=== PATIENT | female | born 1965 | race Caucasian/White ===

== ENCOUNTER 2018-05-30 01:10 | Outpatient (CLI) | payer OTHER, SELFPAY ==
[2018-05-30 11:41] LABS: ALT 26 U/L (12-78); AST 17 U/L (15-37); Albumin 3.9 g/dL (3.4-5.0); Alkaline Phosphatase 94 U/L (46-116); Anion Gap 7.6 mmol/L (3-11); BUN 15 mg/dL (7-18); Bilirubin, Total 0.6 mg/dL (0.2-1.0); CO2 30.4 mmol/L (21.0-32.0); CREATININE 0.66 mg/dL (0.55-1.02); Chloride 104 mmol/L (98-107); Glucose 95 mg/dL (70-100); Potassium 4.5 mmol/L (3.5-5.1); Sodium 142 mmol/L (136-145); Total Protein 7.2 g/dL (6.4-8.2)
== END 2018-05-30 01:30 ==
DX: Z00.00 Encounter for general adult medical examination without abnormal findings (principal); Z13.228 Encounter for screening for other metabolic disorders
CPT/HCPCS: 36415; 80053

== ENCOUNTER 2018-06-23 00:38 | Outpatient (CLI) | payer OTHER, SELFPAY ==
--- NOTE | 2018-06-23 07:30 | DI.MAMMO_ITS ---
SYMPTOMS/DIAGNOSIS: SCREENING, Z12.31 BILATERAL SCREENING MAMMOGRAM: Mammograms were interpreted according to the usual protocol including computer analysis with CAD system, tomosynthesis and C view imaging. Comparison is made with exams from [facility] dated 2008 -2017. The breasts are composed of heterogeneously dense fibroglandular tissue , breast density category C. There has been continued decrease of previously noted bilateral nodules, previously identified as cysts. No suspicious masses or suspicious microcalcifications are seen. IMPRESSION: Category 2, negative mammogram with benign findings. Yearly screening mammography is recommended. SA ASSESSMENT OF FINDINGS: Negative with benign findings. Category 2. Patient will receive a letter notifying them of these results. Bi-RADS category C. The breasts are heterogeneously dense, which may obscure small masses.
== END 2018-06-23 00:58 ==
CPT/HCPCS: 77063; 77067

== ENCOUNTER 2018-09-29 06:27 | Day surgery (SDC) | payer OTHER, SELFPAY ==
--- NOTE | 2018-09-29 06:24 | HPE_ITS ---
Date of service: 09/29/18 Time of Service: 07:30 Assessment and Plan (1) Encounter for screening colonoscopy: Current visit: No Status: Acute P\\ Colonoscopy under MAC sedation The patient is here for Colonoscopy pre-op. Her last screening was in 1999 and was unremarkable. She has no family history of colon cancer. She has not had any bowel habit changes. -Discussed colonoscopy bowel prep as well as the procedure. Discussed possible complications of the procedure to include bleeding, pain, perforation, missed small lesion/polyp, sore throat, aspiration and adverse reaction to the medications. Questions were answered to patient?s satisfaction. No guarantees were implied or given. History of Present Illness Narrative: 52 y/o female presents for colonoscopy screening pre-op. Her last screening was in 1999, which was unremarkable. She denies a family history of colon cancer. She denies any changes in bowel habits including bloody or black tarry stools, abdominal pain, diarrhea or constipation. He denies constitutional symptoms. Denies use of marijuana or any other recreational or illegal drugs. She denies chest pain, palpitations, dyspnea or dyspnea with exertion. She exercises 3-4x/week with walking on the treadmill and yoga. She denies prior history or family history of adverse reactions or complications with anesthesia. There have been no changes in her health since she was last seen in the office. [facility] Medical History History of IBS (Resolved) Family History Mother Hyperlipidemia Father Essential hypertension Sister Hyperlipidemia Asthma Brother No problems noted. Brother No problems noted. 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 pets and animals: Yes pets and animals: dog(s) frequency: 5-6 times per week duration: 15-30 minutes/day Smoking/Tobacco Use Status: Never alcohol intake: current alcohol intake frequency: a few times a month Alcohol type: beer, wine and hard liquor substance use type: does not use jono/cheondoism: Yarsanism special jono needs: No Meds Home Medications Medication Instructions Recorded Confirmed Type fluticasone 2 spry NS DAILY PRN #1 bottle 03/31/18 09/29/18 History bisacodyl 5 mg tablet,delayed 5 mg PO ONCE #4 tab 08/21/18 09/29/18 Rx release polyethylene glycol 3350 17 255 g PO ONCE #255 gm 08/21/18 09/29/18 Rx gram/dose oral powder Allergies Allergy/AdvReac Type Severity Reaction Status Date / Time amoxicillin Allergy Intermediate HIVES Verified 09/29/18 06:42 Sulfa (Sulfonamide Allergy Intermediate HIVES Verified 09/29/18 06:42 Antibiotics) Exam Resp Effort & Inspection: normal respiratory effort Auscultation: clear to auscultation bilaterally Cardio Rate: regular rate Rhythm: regular rhythm Heart Sounds: no gallops, no murmurs and no rubs
--- NOTE | 2018-09-29 06:27 | W.COLOREPORT ---
Date of service: 09/29/18 Time of Service: 07:36 Colonoscopy Report Date of procedure: 09/29/18 Pre-op diagnosis general: Colon Cancer Screening Post-op diagnosis procedure note: same Procedure: Colonoscopy Surgeon: Allyson Joseph Anesthesia proc note operative: MAC (Megan White, [employer]/ ASA 1) Estimated blood loss (mL): 0 Pathology: none sent Complications: None Disposition: same day Indications: Mrs Keerthi Carlos is a pleasant 52 year old female who was seen in the office for a screening colonoscopy. Her last Colonoscopy was in 1999 and was normal. Risks, benefits and complications have been reviewed. Complications include but are not limited to bleeding, pain, perforation, missed small lesion/polyp, sore throat, aspiration and adverse reaction to the medications. Questions were entertained and answered to their satisfaction and they wished to proceed. No guarantees were given or implied. Prep: Miralax/Dulcolax Procedure Start Time: 07:36 Procedure End Time: 07:55 Retraction Time: 11 minutes Findings: Normal Colon and terminal ileum Procedure Description: After informed consent was obtained the patient was taken to the procedure room and placed in a left decubitous position. Monitors were applied and a time out was done. The patients name, date of , procedure, allergies to medications and metal in their body was reviewed. The patient was then sedated. Once sedated and comfortable a rectal exam was done. External exam was normal. Internal exam revealed a normal sphincter tone and no palpable masses. The scope was then introduced and retro-flexed. No internal hemorrhoids were identified. The scope was then advanced to the cecum with some difficulty. Her colon was very tortuous. The TI and appendiceal orifice were identified. The prep was good. The scope was advanced into the terminal ileum for about 10 cm. The ileum was normal. The scope was then slowly retracted over 11 minutes back into the rectum. There were no polyps and no diverticula. The scope was removed and the patient was woken up and taken back to Same day surgery in stable condition. The patient tolerated the procedure well and there were no immediate complications. Follow up: The patient should follow up in 10 years unless they develop changes in bowel habits or other new gastrointestinal complaints.
--- NOTE | 2018-09-29 06:29 | W.PM.DSUDISC ---
Discharge Plan Disposition Patient Disposition: HOME Condition: Good Discharge Details Reason For Visit: Colon Cancer Screening Attending Provider: Allyson Joseph Primary Care Provider: Kimberly Sahu Home Meds and New Rx's Prescriptions: Discontinued bisacodyl [Dulcolax (bisacodyl)] 5 mg tablet,delayed release (DR/EC) 5 mg PO ONCE Qty: 4 RF: 0 polyethylene glycol 3350 17 gram/dose powder 255 g PO ONCE Qty: 255 RF: 0 No Action fluticasone 16 GM spray,suspension 2 spry NS DAILY PRNQty: 1 RF: 0 Discharge Instructions Instructions: Colonoscopy (DC) Additional Instructions: Findings: Normal large bowel Follow up: 10 years Please call if you develop: fevers >101.5 Nausea or Vomiting Abdominal pain that is not transient DAY SURGERY UNIT POST COLONOSCOPY INSTRUCTIONS 1. Because there will be medication in your system for the next 24 hours, you may feel a little sleepy. Your coordination will be affected. Therefore: a. Do not drive or operate dangerous equipment for 24 hours. b. Do not drink alcohol beverages for 24 hours (not even beer). c. Plan to go home and rest for the day. 2. Generally there are no restrictions on your activity after a day or so has gone by, but you may feel a bit fatigued for a few days. 3 After you arrive home you may have a light meal and return to a normal diet as you can tolerate it without feeling sick to your stomach. 4. After surgery, you may feel pain or discomfort. This should be only transient, but if it persists please contact your doctor. 5. If there are any questions regarding the findings of your procedure, please feel free to contact your doctor. 6. If you are unable to contact your doctor with a problem, contact the hospital at [phone]. 7. Continue all your regular medications unless directed otherwise. I understand the above instructions and have no questions. Signature of Patient or Responsible Adult Escort Date/Time Name of Responsible Adult Escort Signature of Nurse Date/Time Activity:: Activity as Tolerated Diet:: As Tolerated Discharge Orders Discharge Orders: Discharge Order (Routine); Ordered 09/29/18 Ordered By: Allyson Joseph DS: Diagnosis Discharge Diagnosis (1) Encounter for screening colonoscopy: Status: Acute (2) S/P colonoscopy: Status: Acute
[2018-09-29 06:43] VITALS: BP 107/68; PULSE 71; RESP 16; TEMP 35.5; O2SAT 97
[2018-09-29] MEDS: Lactated Ringers 1,000 ML 80 ML IV (07:02)
[2018-09-29 08:25] VITALS: BP 110/68; PULSE 60; RESP 16; TEMP 35.8; O2SAT 100
== END 2018-09-29 08:37 | disposition home or self-care (01) ==
PROVIDERS: Visit Provider Surgery
PROC: 0DJD8ZZ Inspection of Lower Intestinal Tract, Via Natural or Artificial Opening Endoscopic (ICD-10-PCS; CPT 45378; principal; 2018-09-29 07:30)
DX: Z12.11 Encounter for screening for malignant neoplasm of colon (principal); K63.89 Other specified diseases of intestine
CPT/HCPCS: 45378; NC

== ENCOUNTER 2018-10-22 15:04 | Emergency (ER) | payer OTHER, SELFPAY ==
[2018-10-22 15:08] VITALS: BP 133/69; PULSE 77; RESP 16; TEMP 36.8; O2SAT 94
--- NOTE | 2018-10-22 15:19 | DI.RAD_ITS ---
SYMPTOM/DIAGNOSIS: ACCIDENTAL FALL, PAIN, ? FX LUMBOSACRAL SPINE: Five views were obtained. There is a moderate left convex lumbar scoliosis. There is no evidence of spondylolysis or spondylolisthesis. There is disc space narrowing at multiple levels, most marked at L 5-S 1. Moderate hypertrophic degenerative changes of the vertebral endplates and facet joints noted throughout the lumbar region. No evidence of acute fracture. CONCLUSION: No acute fracture.
--- NOTE | 2018-10-22 15:59 | NUR.NOTE ---
pt given ice for her back Nursing Note:
--- NOTE | 2018-10-22 16:17 | W.ED.GENAD ---
Discharge Plan Disposition Patient Disposition: HOME Condition: Stable Discharge Details Chief Complaint: Orthopedic Clinical Impression: Back contusion Primary Care Provider: Kimberly Sahu ED Provider: Arsalan Yousif Home Meds and New Rx's Prescriptions: No Action fluticasone 50 mcg/actuation spray,suspension 2 spray NS DAILY PRN (Reason: allergy symptoms) Qty: 15.8 RF: 4 benzonatate 100 mg capsule 100 - 200 mg PO TID PRN (Reason: cough) Qty: 60 RF: 0 Discharge Instructions Instructions: Contusion in Adults (ED) Additional Instructions: 1. Drink plenty of fluids. 2. Continue all medications as prescribed. 3. Acetaminophen 1000mg every 4 hours (up to 5 time a day) and/or ibuprofen 600mg every 6 hours as needed for fever or pain. 4. Ice sore areas frequently. Activity as tolerated. Return to the Emergency Department (ED) if your condition worsens, does not improve as expected, or for ANY other concerns. Specifically, return if you have new or uncontrolled pain, worsening fever, difficulty breathing, vomiting, or are unable to drink fluids. Referrals: Kimberly Sahu, RETAIL ASSET PROTECTION SPECIALIST [Primary Care Provider] - Medical Decision Making Presents with acute low back pain associated with a slip while walking downstairs and impact of her back to a step in the low lumbar region. Has mild subjective paresthesias to her left gluteal region but otherwise denies any focal neurological complaints. Exam suggestive of posterior contusion. X-ray with no acute fractures appreciated. Discussed findings with patient who was discharged home with a plan for conservative management (anti-inflammatories, ice, and activity as tolerated). Pt evaluated immediately prior to discharge with improved symptoms, normal vital signs, and tolerating PO. The patient feels appropriate for discharge home. Discussed clinical/diagnostic findings. Discharged with a clear plan for outpatient follow up. Given usual and customary return instructions prior to discharge. Medical Records Medical records reviewed: Yes I reviewed the patient's medical records. Imaging Data Radiologic Study: Attestation: I personally reviewed and interpreted this imaging study as follows: Imaging: X-Ray (Lumbar x-ray) My impression: No acute findings. Interpreted independently and contemporaneously by myself. Reviewed radiology report. Radiologist's impression: Lumbar scoliosis, spondylolysis, disc disease.. No acute findings 53-year-old woman with a past medical history which includes IBS and previous low back pain. Presents for evaluation of acute low back pain associated with a fall after slipping on ice. She describes slipping as she was going down steps and landing with impact to her lumbar back. She had severe local pain immediately and has had local bruising. She also developed some paresthesias from her lumbar region towards her left gluteal muscle.. She denies any other significant injury. She denies headache, neck pain, upper back pain, chest pain, dyspnea, abdominal pain. She denies any numbness or weakness distal to the injury.she has had no change in bowel or bladder habits. HPI General Date/Time Provider Initiated Documentation: 10/22/18 15:19. Related Data Home Medications Medication Instructions Recorded Confirmed benzonatate 100 mg capsule 100 - 200 mg PO TID PRN #60 cap 10/13/18 10/20/18 fluticasone 50 mcg/actuation nasal 2 spray NS DAILY PRN #15.8 gm 10/20/18 10/20/18 spray,suspension Previous Rx's Medication Instructions Recorded benzonatate 100 mg capsule 100 - 200 mg PO TID PRN #60 cap 10/13/18 fluticasone 50 mcg/actuation nasal 2 spray NS DAILY PRN #15.8 gm 10/20/18 spray,suspension Allergies Allergy/AdvReac Type Severity Reaction Status Date / Time amoxicillin Allergy Intermediate HIVES Verified 10/22/18 16:00 Sulfa (Sulfonamide Allergy Intermediate HIVES Verified 10/22/18 16:00 Antibiotics) General Stated Complaint: Orthopedic VELIA: 3 Review of Systems Review of Systems All systems are reviewed and are unremarkable except as noted in HPI and below: CONSTITUTIONAL: no fevers/chills, no weakness or change in appetite EYES: no change in vision HEENT: no throat pain or difficulty swallowing; no neck pain CARDIOVASCULAR: no chest pain, palpitations, leg swelling, or diaphoresis RESPIRATORY: no cough, dyspnea, wheezing GASTROINTESTINAL: no abdominal pain, melena, nausea/emesis GENITOURINARY: no dysuria, flank pain, MUSCULOSKELETAL: Low back pain with paresthesias radiating towards her left gluteal region region. 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 GENERAL: alert, active, no acute distress, well -hydrated, well-nourished HEENT: atraumatic/normocephalic, PERRLA, EOMI, conjunctiva clear, external ears/canals normal, nasal mucosa normal NECK: supple, full range of motion CARDIOVASCULAR: nl pulses, no edema PULMONARY: nl effort, no audible wheezing or stridor ABDOMEN: non-distended EXTREMITY: normal muscle tone, all joints with FROM, no deformity NUERO: normal mentation, moving all extremities, normal stance and gait, PSYCH: alert and oriented SKIN: Local ecchymosis/abrasion mid low lumbar BACK: Tenderness and ecchymosis in the low lumbar region midline S1-L3. No SI joint tenderness. Course Vital Signs Temperature 98.2 F 10/22/18 15:08 Pulse 77 10/22/18 15:08 Respiratory Rate 16 10/22/18 15:08 Blood Pressure 133/69 10/22/18 15:08 Pulse Oximetry 94 L 10/22/18 15:08 Temperature 98.2 F 10/22/18 15:08 Temperature Source Temporal Artery Scan 10/22/18 15:08 Pulse 77 10/22/18 15:08 Respiratory Rate 16 10/22/18 15:08 Respiratory Effort 10/22/18 15:15 Blood Pressure 133/69 10/22/18 15:08 Blood Pressure Position Standing 10/22/18 15:08 Pulse Oximetry 94 L 10/22/18 15:08 Oxygen Delivery Method Room Air 10/22/18 15:08 Oxygen Flow Rate 0 10/22/18 15:08 Pain Level 3 10/22/18 15:20 Comment 10/22/18 15:08
--- NOTE | 2018-10-22 16:23 | ED.GENADUL_ITS ---
Discharge Plan Disposition Patient Disposition: HOME Condition: Stable Discharge Details Chief Complaint: Orthopedic Clinical Impression: Back contusion Primary Care Provider: Kimberly Sahu ED Provider: Arsalan Yousif Home Meds and New Rx's Prescriptions: No Action fluticasone 50 mcg/actuation spray,suspension 2 spray NS DAILY PRN (Reason: allergy symptoms) Qty: 15.8 RF: 4 benzonatate 100 mg capsule 100 - 200 mg PO TID PRN (Reason: cough) Qty: 60 RF: 0 Discharge Instructions Instructions: Contusion in Adults (ED) Additional Instructions: 1. Drink plenty of fluids. 2. Continue all medications as prescribed. 3. Acetaminophen 1000mg every 4 hours (up to 5 time a day) and/or ibuprofen 600mg every 6 hours as needed for fever or pain. 4. Ice sore areas frequently. Activity as tolerated. Return to the Emergency Department (ED) if your condition worsens, does not improve as expected, or for ANY other concerns. Specifically, return if you have new or uncontrolled pain, worsening fever, difficulty breathing, vomiting, or are unable to drink fluids. Referrals: Kimberly Sahu, CHIEF PROJECTIONIST [Primary Care Provider] - Medical Decision Making Presents with acute low back pain associated with a slip while walking downstairs and impact of her back to a step in the low lumbar region. Has mild subjective paresthesias to her left gluteal region but otherwise denies any focal neurological complaints. Exam suggestive of posterior contusion. X-ray with no acute fractures appreciated. Discussed findings with patient who was discharged home with a plan for conservative management (anti-inflammatories, ice, and activity as tolerated). Pt evaluated immediately prior to discharge with improved symptoms, normal vital signs, and tolerating PO. The patient feels appropriate for discharge home. Discussed clinical/diagnostic findings. Discharged with a clear plan for outpatient follow up. Given usual and customary return instructions prior to discharge. Medical Records Medical records reviewed: Yes I reviewed the patient's medical records. Imaging Data Radiologic Study: Attestation: I personally reviewed and interpreted this imaging study as follows: Imaging: X-Ray (Lumbar x-ray) My impression: No acute findings. Interpreted independently and contemporaneously by myself. Reviewed radiology report. Radiologist's impression: Lumbar scoliosis, spondylolysis, disc disease.. No acute findings 53-year-old woman with a past medical history which includes IBS and previous low back pain. Presents for evaluation of acute low back pain associated with a fall after slipping on ice. She describes slipping as she was going down steps and landing with impact to her lumbar back. She had severe local pain immediately and has had local bruising. She also developed some paresthesias from her lumbar region towards her left gluteal muscle.. She denies any other significant injury. She denies headache, neck pain, upper back pain, chest p ain, dyspnea, abdominal pain. She denies any numbness or weakness distal to the injury.she has had no change in bowel or bladder habits. HPI General Date/Time Provider Initiated Documentation: 10/22/18 15:19 . Related Data Home Medications Medication Instructions Recorded Confirmed benzonatate 100 mg capsule 100 - 200 mg PO TID PRN #60 cap 10/13/18 10/20/18 fluticasone 50 mcg/actuation nasal 2 spray NS DAILY PRN #15.8 gm 10/20/18 10/20/18 spray,suspension Previous Rx's Medication Instructions Recorded benzonatate 100 mg capsule 100 - 200 mg PO TID PRN #60 cap 10/13/18 fluticasone 50 mcg/actuation nasal 2 spray NS DAILY PRN #15.8 gm 10/20/18 spray,suspension Allergies Allergy/AdvReac Type Severity Reaction Status Date / Time amoxicillin Allergy Intermediate HIVES Verified 10/22/18 16:00 Sulfa (Sulfonamide Allergy Intermediate HIVES Verified 10/22/18 16:00 Antibiotics) General Stated Complaint: Orthopedic VELIA: 3 Review of Systems Review of Systems All systems are reviewed and are unremarkable except as noted in HPI and below: CONSTITUTIONAL: no fevers/chills, no weakness or change in appetite EYES: no change in vision HEENT: no throat pain or difficulty swallowing; no neck pain CARDIOVASCULAR: no chest pain, palpitations, leg swelling, or diaphoresis RESPIRATORY: no cough, dyspnea, wheezing GASTROINTESTINAL: no abdominal pain, melena, nausea/emesis GENITOURINARY: no dysuria, flank pain, MUSCULOSKELETAL: Low back pain with paresthesias radiating towards her left gluteal region region. 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 GENERAL: alert, active, no acute distress, well -hydrated, well-nourished HEENT: atraumatic/normocephalic, PERRLA, EOMI, conjunctiva clear, external ears/canals normal, nasal mucosa normal NECK: supple, full range of motion CARDIOVASCULAR: nl pulses, no edema PULMONARY: nl effort, no audible wheezing or stridor ABDOMEN: non-distended EXTREMITY: normal muscle tone, all joints with FROM, no deformity NUERO: normal mentation, moving all extremities, normal stance and gait, PSYCH: alert and oriented SKIN: Local ecchymosis/abrasion mid low lumbar BACK: Tenderness and ecchymosis in the low lumbar region midline S1-L3. No SI joint tenderness. Course Vital Signs Temperature 98.2 F 10/22/18 15:08 Pulse 77 10/22/18 15:08 Respiratory Rate 16 10/22/18 15:08 Blood Pressure 133/69 10/22/18 15:08 Pulse Oximetry 94 L 10/22/18 15:08 Temperature 98.2 F 10/22/18 15:08 Temperature Source Temporal Artery Scan 10/22/18 15:08 Pulse 77 10/22/18 15:08 Respiratory Rate 16 10/22/18 15:08 Respiratory Effort 10/22/18 15:15 Blood Pressure 133/69 10/22/18 15:08 Blood Pressure Position Standing 10/22/18 15:08 Pulse Oximetry 94 L 10/22/18 15:08 Oxygen Delivery Method Room Air 10/22/18 15:08 Oxygen Flow Rate 0 10/22/18 15:08 Pain Level 3 10/22/18 15:20 Comment 10/22/18 15:08
--- NOTE | 2018-10-22 16:27 | DI.VRAD_ITS ---
EXAM: XR Lumbar Spine, 4 or 5 Views EXAM DATE/TIME: 10/22/2018 4:07 PM CLINICAL HISTORY: 53 years old, female; Injury or trauma; Fall; Initial encounter; Sprain or strain, lumbar ligaments; Injury date: 10/21/18 TECHNIQUE: XR of the lumbar spine, 4 or 5 views. COMPARISON: No relevant prior studies available. FINDINGS: Vertebrae: There is levoconvex lumbar scoliosis. The apex of the curvature is at approximately the L2-3 disc space. There is grade 1 anterolisthesis of L4 on L5. There is no evidence of an acute fracture. There is no decrease of vertebral body height. There is no acute or destructive bony abnormality. There is disc space narrowing at multiple levels most prominent at L5-S1. There are spondylitic changes of the endplates and facet arthropathy. Sacrum/coccyx: SI joints are symmetric Gastrointestinal tract: Bowel gas pattern is unremarkable. Vasculature: Mild vascular calcification is noted Soft tissues: Visualized soft tissues are unremarkable IMPRESSION: Levoconvex lumbar scoliosis, spondylosis, disc disease. No acute findings by plain film exam. Dictated and Authenticated by: Carmen Garcia MD. Ordering:NUNO Arriaza MD
[2018-10-22 16:38] VITALS: BP 133/69; PULSE 77; RESP 16; TEMP 36.8; O2SAT 94
== END 2018-10-22 16:33 | disposition home or self-care (01) ==
PROVIDERS: Emergency Provider Emergency Medicine
DX: S30.0XXA Contusion of lower back and pelvis, initial encounter (principal); W00.1XXA Fall from stairs and steps due to ice and snow, initial encounter
CPT/HCPCS: 99283; 72110; 99282

== ENCOUNTER 2019-06-01 10:46 | Outpatient (REF) | payer OTHER, SELFPAY ==
--- NOTE | 2019-06-01 09:00 | PAPFT_PTH ---
PATIENT: Cesilia Osborn LOC: [facility] U#:[id number] AGE/SX: 53/F ROOM: RE06/01/[address]: Kimberly Sahu APRN : 1965 BED: DIS: 06/01/2019 SPEC #: [id number] RECD: 06/01/19 12:53 STATUS: VINCENT RESrinivasan #: [id number] BAYRON: 06/01/19 09:[address]: Kimberly Sahu DEPT: [facility] Cytology RECD BY: Shannan Garnica Tissues: 1 - CX/ENDOCX FOR PAP SMEARS Procedures: PAP THIN PREP/UVM Screening HPV DNA PROBE Comments: [id number]
== END 2019-06-01 11:06 ==
LOC: LBN 10:46
DX: Z12.4 Encounter for screening for malignant neoplasm of cervix (principal); Z11.51 Encounter for screening for human papillomavirus (HPV)
CPT/HCPCS: 88142; 87624

== ENCOUNTER 2019-07-20 01:15 | Outpatient (CLI) | payer OTHER, SELFPAY ==
--- NOTE | 2019-07-20 07:15 | DI.MAMMO_ITS ---
EXAM: MG MAMMO SCREENING CLINICAL HISTORY: screening,z12.39 TECHNIQUE: Bilateral full field digital CC and MLO mammographic images were obtained with 3D tomosyn thesis and utilizing computer aided detection (CAD). COMPARISON: Available for comparison. FINDINGS: Masses/Architectural Distortion: None seen. There are stable nodules in the breasts bilaterally. Microcalcifications: No suspicious pleomorphic-type are seen. Skin Thickening/Nipple Retraction: None. IMPRESSION: 1. No significant interval change with no specific features of malignancy noted. 2. Unless there is more urgent need, screening mammography is recommended, as per [place] guidelines. BI-RADS Cat 2 - Benign Findings Breast Density - Category C - Heterogeneously dense The mammogram demonstrates the patient's breast tissue is dense. Dense breast tissue is very common a nd is not abnormal but dense breast tissue can make it harder to find cancer on a mammogram. Also, de nse breast tissue may increase their breast cancer risk. This information about the result of the [facility] mogram report was provided to the patient to raise their awareness. Use this report when you speak wi th the patient about their risks for breast cancer, which includes their family history. At that time , you may recommend for more screening tests (Ultrasound or MRI) as they might be useful based on the ir risk. A negative radiographic report should not delay biopsy if a dominant or clinically suspicious mass is present. Up to ten percent of cancers are not identified on mammography. A negative report may reinforce clinical impression. Adenosis and dense breasts may obscure an underlying neoplasm. False positive reports average 6 to 10%. Patient will receive a letter notifying them of these results.
== END 2019-07-20 01:35 ==
DX: Z12.31 Encounter for screening mammogram for malignant neoplasm of breast (principal)
CPT/HCPCS: 77063; 77067

== ENCOUNTER 2019-07-24 01:52 | Outpatient (CLI) | payer OTHER, SELFPAY ==
[2019-07-24 11:42] LABS: ALT 34 U/L (14-59); AST 16 U/L (15-37); Albumin 3.9 g/dL (3.4-5.0); Alkaline Phosphatase 96 U/L (46-116); Anion Gap 8.8 mmol/L (3-11); BUN 15 mg/dL (7-18); Bilirubin, Total 0.6 mg/dL (0.2-1.0); CO2 29.2 mmol/L (21.0-32.0); CREATININE 0.66 mg/dL (0.55-1.02); Calcium 9.1 mg/dL (8.5-10.1); Calculated LDL 122 mg/dL; Chloride 105 mmol/L (98-107); Cholesterol 199 mg/dL (50-200); Glucose 92 mg/dL (70-100); HDL Cholesterol 67 mg/dL (40-60); Potassium 4.4 mmol/L (3.5-5.1); Sodium 143 mmol/L (136-145); Triglyceride 51 mg/dL (30-150)
== END 2019-07-24 02:12 ==
DX: Z00.00 Encounter for general adult medical examination without abnormal findings (principal); I10 Essential (primary) hypertension; E78.5 Hyperlipidemia, unspecified
CPT/HCPCS: 36415; 80053; 80061

== ENCOUNTER 2020-01-29 09:36 | Outpatient (CLI) | payer OTHER, SELFPAY ==
[2020-01-30 14:41] LABS: COVID-19 RT-PCR Result NEGATIVE (Negative)
== END 2020-01-29 09:56 ==
DX: Z11.59 Encounter for screening for other viral diseases (principal)
CPT/HCPCS: U0003

== ENCOUNTER 2020-07-21 01:22 | Outpatient (CLI) | payer OTHER, SELFPAY ==
--- NOTE | 2020-07-21 06:45 | DI.MAMMO_ITS ---
EXAM: MG MAMMO SCREENING CLINICAL HISTORY: screening,Z12.39 TECHNIQUE: Bilateral full field digital CC and MLO mammographic images were obtained with 3D tomosyn thesis and utilizing computer aided detection (CAD). COMPARISON: Available for comparison. FINDINGS: Masses/Architectural Distortion: There are stable nodules in the breast bilaterally. No suspicious m asses or areas of architectural distortion are seen. Microcalcifications: No suspicious pleomorphic-type are seen. Skin Thickening/Nipple Retraction: None. IMPRESSION: 1. No significant interval change with no specific features of malignancy noted. 2. Unless there is more urgent need, screening mammography is recommended, as per [place] guidelines. BI-RADS Category 2 - Benign Findings Breast Density - Category C - Heterogeneously dense The mammogram demonstrates the patient's breast tissue is dense. Dense breast tissue is very common a nd is not abnormal but dense breast tissue can make it harder to find cancer on a mammogram. Also, de nse breast tissue may increase their breast cancer risk. This information about the result of the [facility] mogram report was provided to the patient to raise their awareness. Use this report when you speak wi th the patient about their risks for breast cancer, which includes their family history. At that time , you may recommend for more screening tests (Ultrasound or MRI) as they might be useful based on the ir risk. A negative radiographic report should not delay biopsy if a dominant or clinically suspicious mass is present. Up to ten percent of cancers are not identified on mammography. A negative report may reinforce clinical impression. Adenosis and dense breasts may obscure an underlying neoplasm. False positive reports average 6 to 10%. Patient will receive a letter notifying them of these results.
== END 2020-07-21 01:42 ==
DX: Z12.31 Encounter for screening mammogram for malignant neoplasm of breast (principal)
CPT/HCPCS: 77063; 77067

== ENCOUNTER 2020-07-21 02:27 | Outpatient (CLI) | payer OTHER, SELFPAY ==
[2020-07-21 12:36] LABS: C-Reactive Protein 0.07 mg/dL (0.0-0.3)
[2020-07-27 14:30] LABS: HLA-B27 Result Positive
== END 2020-07-21 02:47 ==
DX: M25.50 Pain in unspecified joint (principal); Z82.69 Family history of other diseases of the musculoskeletal system and connective tissue
CPT/HCPCS: 36415; 86812; 86140

== ENCOUNTER 2021-06-16 08:33 | Outpatient (CLI) | payer OTHER, SELFPAY ==
[2021-06-16 12:32] LABS: ALT 40 U/L (14-59); AST 21 U/L (15-37); Albumin 4.1 g/dL (3.4-5.0); Alkaline Phosphatase 96 U/L (46-116); Anion Gap 5.9 mmol/L (3-11); BUN 11 mg/dL (7-18); Bilirubin, Total 0.7 mg/dL (0.2-1.0); CO2 31.1 mmol/L (21.0-32.0); CREATININE 0.7 mg/dL (0.55-1.02); Calcium 9.2 mg/dL (8.5-10.1); Chloride 104 mmol/L (98-107); Glucose 90 mg/dL (74-106); Potassium 4.4 mmol/L (3.5-5.1); Sodium 141 mmol/L (136-145); Total Protein 7.4 g/dL (6.4-8.2)
== END 2021-06-16 08:34 | disposition home or self-care (01) ==
PROVIDERS: Visit Provider Family Medicine
DX: Z00.00 Encounter for general adult medical examination without abnormal findings (principal); Z23 Encounter for immunization
CPT/HCPCS: 36415; 80053

== ENCOUNTER 2021-07-24 02:34 | Outpatient (CLI) | payer OTHER, SELFPAY ==
--- NOTE | 2021-07-24 06:15 | DI.MAMMO_ITS ---
Exam(s) MAMMO SCREENING EXAM: MAMMO SCREENING CLINICAL HISTORY: screening,z12.39. TECHNIQUE: Bilateral full field digital CC and MLO mammographic images were obtained with 3D tomosyn thesis and utilizing computer aided detection (CAD). COMPARISON: Prior mammograms dating back to 2013, the most recent being July 2020. FINDINGS: Fibroglandular tissue pattern is again noted be moderately dense, this somewhat decreasing the sensit ivity of the mammogram for finding in underlying lesions. In the right breast on 3D cc imaging there is an 11 by 9 millimeter nodule located 7 cm in from the n ipple, slightly lateral of center. Spot compression view recommended. In the opposite left breast there is an asymmetric density seen laterally which has the appearance no ncalcified nodule located 9 cm from the nipple, measuring 8.3 8.3 cm. No other possible nodule towar ds the upper outer quadrant of the left breast also noted. There is no significant architectural distortion nor skin thickening-retraction. Benign-appearing micro and macrocalcifications are again noted. IMPRESSION: Moderately dense fibroglandular tissue. Nodular density seen bilaterally as described above. These may represent remnants of cysts which were present in largest size at these locations in 2016. Elizabeth perry, recommend spot compression CC bilateral views and bilateral breast ultrasound. BI-RADS Category 0 - Assessment Incomplete: Need additional imaging evaluation Breast Density - Category C - Heterogeneously dense Breast density Category C or D implies that the patient has dense breast tissue. Dense breast tissue can make it harder to find cancer on a mammogram. Dense breast tissue is also associated with an incr eased risk of breast cancer. This information about the result of the mammogram report was provided to the patient to raise their awareness. Use this report when you speak with the patient about their risks for breast cancer, which includes their family history. At that time, you may recommend additional screening tests (Ultrasoun d or MRI) as these tests may add significant information. A negative radiographic report should not delay biopsy if a dominant or clinically suspicious mass is present. Up to ten percent of cancers are not identified on mammography. A negative report may reinforce clinical impression. Adenosis and dense breasts may obscure an underlying neoplasm. False positive reports average 6 to 10%. Patient will receive a letter notifying them of these results.
== END 2021-07-24 02:54 ==
DX: Z12.31 Encounter for screening mammogram for malignant neoplasm of breast (principal); R92.8 Other abnormal and inconclusive findings on diagnostic imaging of breast
CPT/HCPCS: 77063; 77067

== ENCOUNTER 2021-08-09 00:33 | Outpatient (CLI) | payer OTHER, SELFPAY ==
--- NOTE | 2021-08-09 14:00 | DI.MAMMO_ITS ---
Exam(s) US BREAST LT COMPLETE US BREAST RT COMPLETE MG MAMMO SCREEN CALL BACK BI EXAM: MG MAMMO SCREEN CALL BACK BI and bilateral complete breast ultrasound CLINICAL HISTORY: BILAT NODULAR DENSITY. TECHNIQUE: Craniocaudal and mediolateral oblique Full Field Digital Mammography views of the bilater al breast with Computer Aided Diagnosis followed by Tomosynthesis and bilateral breast ultrasound. COMPARISON: Priors available for comparison. FINDINGS: Mammography/Tomosynthesis: Masses/Architectural Distortion: Well-circumscribed nodules are again seen in the outer halves of bot h breast on the additional views. Microcalcifictions: No suspicious pleomorphic-type are seen. Skin Thickening/Nipple Retraction: None. Bilateral complete breast US: Echotexture: Normal appearance of the glandular tissue. Shadowing: No suspicious foci. Cyst: There is a simple cyst at the 10 o'clock position of the right breast 4 cm from the nipple kimberly uring 5 x 3.5 x 3 mm. This would appear to correspond to the mammographic abnormality. There is a c yst at the 3 o'clock position of the left breast 4 cm from the nipple measuring 6 x 6 x 6 mm which wo uld correspond to the mammographic abnormality. There is a 5 x 2 x 5 mm cyst at the 5 o'clock positi on of the right breast 2 cm from the nipple. Solid lesions: None seen. Ductal dilation: None. IMPRESSION: 1. No evidence of malignancy is noted. 2. Unless there is more urgent need, follow-up screening mammography is recommended, as per [employer] guidelines. 3. The findings were discussed with the patient on the date of the examination. BI-RADS Category 2 - Benign Findings Breast Density - Category C - Heterogeneously dense Breast density Category C or D implies that the patient has dense breast tissue. Dense breast tissue can make it harder to find cancer on a mammogram. Dense breast tissue is also associated with an incr eased risk of breast cancer. This information about the result of the mammogram report was provided to the patient to raise their awareness. Use this report when you speak with the patient about their risks for breast cancer, which includes their family history. At that time, you may recommend additional screening tests (Ultrasoun d or MRI) as these tests may add significant information. A negative radiographic report should not delay biopsy if a dominant or clinically suspicious mass is present. Up to ten percent of cancers are not identified on mammography. A negative report may reinforce clinical impression. Adenosis and dense breasts may obscure an underlying neoplasm. False positive reports average 6 to 10%. Patient will receive a letter notifying them of these results.
== END 2021-08-09 00:53 ==
DX: R92.8 Other abnormal and inconclusive findings on diagnostic imaging of breast (principal); N60.01 Solitary cyst of right breast; N60.02 Solitary cyst of left breast
CPT/HCPCS: 76642; 77063; 77067

== ENCOUNTER 2021-08-31 15:45 | Outpatient (REF) | payer OTHER, SELFPAY ==
[2021-09-02 00:32] LABS: COVID-19 RT-PCR UVMMC Result Negative (Negative)
== END 2021-08-31 15:46 | disposition home or self-care (01) ==
LOC: LBN 15:45
PROVIDERS: Visit Provider Nurse Practitioner Family
DX: Z20.822 Contact with and (suspected) exposure to COVID-19 (principal)
CPT/HCPCS: U0003

== ENCOUNTER 2021-09-12 15:19 | Outpatient (REF) | payer OTHER, SELFPAY | END 2021-09-12 15:20 | disposition home or self-care (01) | LOC: LBO 15:19 | PROVIDERS: Visit Provider Nurse Practitioner Family ==

== ENCOUNTER 2021-09-12 19:33 | Outpatient (REF) | payer OTHER, SELFPAY ==
[2021-09-13 04:02] LABS: COVID-19 RT-PCR UVMMC Result Negative (Negative)
== END 2021-09-12 19:34 | disposition home or self-care (01) ==
LOC: LBN 19:33
PROVIDERS: Visit Provider Nurse Practitioner Family
DX: Z20.822 Contact with and (suspected) exposure to COVID-19 (principal)
CPT/HCPCS: U0003

== ENCOUNTER 2022-01-17 01:22 | Outpatient (CLI) | payer OTHER, SELFPAY ==
[2022-01-17 14:14] LABS: ALT 41 U/L (14-59); AST 24 U/L (15-37); Albumin 3.9 g/dL (3.4-5.0); Alkaline Phosphatase 94 U/L (46-116); BUN 16 mg/dL (7-18); Bilirubin, Total 0.3 mg/dL (0.2-1.0); CREATININE 0.6 mg/dL (0.55-1.02); Calcium 8.6 mg/dL (8.5-10.1); Chloride 106 mmol/L (98-107); Glucose 90 mg/dL (74-106); Potassium 4.3 mmol/L (3.5-5.1); Sodium 143 mmol/L (136-145); Total Protein 6.9 g/dL (6.4-8.2)
== END 2022-01-17 01:23 | disposition home or self-care (01) ==
DX: Z00.00 Encounter for general adult medical examination without abnormal findings (principal)
CPT/HCPCS: 36415; 80053

== ENCOUNTER 2022-07-17 03:20 | Outpatient (CLI) | payer OTHER, SELFPAY ==
[2022-07-17 11:53] LABS: Calculated LDL 125 mg/dL (<100); Cholesterol 209 mg/dL (<200); HDL Cholesterol 58 mg/dL (40-60); Triglyceride 134 mg/dL (<150)
== END 2022-07-17 03:21 | disposition home or self-care (01) ==
LOC: LOS 03:20
PROVIDERS: PCP Nurse Practitioner Family; Visit Provider Nurse Practitioner Family
DX: Z13.220 Encounter for screening for lipoid disorders (principal)
CPT/HCPCS: 36415; 80061

== ENCOUNTER 2023-09-30 17:52 | Outpatient (REF) | payer OTHER, SELFPAY ==
[2023-10-02 09:49] LABS: IgA 178 mg/dL (85-499); Interpretation (See Note); Tissue Transglutaminase IgA <4.0 CU (<20.0)
== END 2023-09-30 17:53 | disposition home or self-care (01) ==
LOC: LBN 17:52
PROVIDERS: PCP Nurse Practitioner Family; Visit Provider Nurse Practitioner Family
DX: K52.89 Other specified noninfective gastroenteritis and colitis (principal)
CPT/HCPCS: 82784; 83516

== ENCOUNTER → 2023-10-09 02:23 | Outpatient (CLI) | payer OTHER, SELFPAY ==
--- NOTE | 2023-10-09 07:56 | DI.MAMMO_ITS ---
Exam(s) MAMMO SCREENING EXAM: MAMMO SCREENING CLINICAL HISTORY: screening,z12.39 TECHNIQUE: Bilateral full field digital CC and MLO mammographic images were obtained with 3D tomosyn thesis and utilizing computer aided detection (CAD). COMPARISON: Available for comparison. FINDINGS: Masses/Architectural Distortion: There are stable bilateral breast nodules. No new nodules are seen. No areas of architectural distortion are present. Microcalcifications: No suspicious pleomorphic-type are seen. Skin Thickening/Nipple Retraction: None. IMPRESSION: 1. No significant interval change with no specific features of malignancy noted. 2. Unless there is more urgent need, screening mammography is recommended, as per [employer] guidelines. BI-RADS Category 2 - Benign Findings Breast Density - Category C - Heterogeneously dense Breast density category C or D implies that the patient has dense breast tissue. Dense breast tissue is very common and is not abnormal but dense breast tissue can make it harder to find cancer on a ma mmogram. Also, dense breast tissue may increase their breast cancer risk. This information about the result of the mammogram report was provided to the patient to raise their awareness. Use this report when you speak with the patient about their risks for breast cancer, which includes their family hist ory. At that time, you may recommend for more screening tests (Ultrasound or MRI) as they might be us eful based on their risk. A negative radiographic report should not delay biopsy if a dominant or clinically suspicious mass is present. Up to ten percent of cancers are not identified on mammography. A negative report may reinforce clinical impression. Adenosis and dense breasts may obscure an underlying neoplasm. False positive reports average 6 to 10%. Patient will receive a letter notifying them of these results.
== END ==
PROVIDERS: PCP Nurse Practitioner Family; Visit Provider Nurse Practitioner Family
DX: Z12.31 Encounter for screening mammogram for malignant neoplasm of breast (principal)
CPT/HCPCS: 77063; 77067

== ENCOUNTER 2024-10-14 12:05 | Outpatient (REF) | payer BC, SELFPAY ==
--- NOTE | 2024-10-14 12:00 | PAPFT_PTH ---
PATIENT: Cesilia Osborn LOC: [facility] U#:[id number] AGE/SX: 59/F ROOM: RE10/14/[address]: Salinas Moise DNP : 1965 BED: DIS: 10/14/2024 SPEC #: [id number] RECD: 10/15/24 13:08 STATUS: VINCENT REQ #: [id number] BAYRON: 10/14/24 12:[address]: Salinas Vidal DEPT: [facility] Cytology RECD BY: Shannan Garnica Tissues: 1 - CX/ENDOCX FOR PAP SMEARS Procedures: PAP THIN PREP/UVM Screening Comments: [id number]
== END 2024-10-14 12:06 | disposition home or self-care (01) ==
LOC: LBN 12:05
PROVIDERS: PCP Nurse Practitioner Family; Visit Provider Nurse Practitioner Family
DX: Z11.51 Encounter for screening for human papillomavirus (HPV) (principal); Z01.419 Encounter for gynecological examination (general) (routine) without abnormal findings; N76.0 Acute vaginitis
CPT/HCPCS: 88142

== ENCOUNTER 2024-12-04 01:01 | Outpatient (CLI) | payer BC, SELFPAY ==
[2024-12-04 13:17] LABS: ALT 33 U/L (14-59); AST 19 U/L (15-37); Alkaline Phosphatase 104 U/L (46-116); Anion Gap 11.8 mmol/L (3-11); BUN 16 mg/dL (7-18); Bilirubin, Total 0.7 mg/dL (0.2-1.0); CO2 28.2 mmol/L (21.0-32.0); CREATININE 0.7 mg/dL (0.55-1.02); Calcium 9.4 mg/dL (8.5-10.1); Chloride 103 mmol/L (98-107); Estimated GFR 100.19 (mL/min/1.73m2); Glucose 99 mg/dL (74-106); Potassium 4.4 mmol/L (3.5-5.1); Sodium 143 mmol/L (136-145); Total Protein 7.2 g/dL (6.4-8.2)
[2024-12-09 18:01] LABS: Apolipoprotein B, Serum 108 mg/dL (48-124); Beta VLDL Cholesterol Not Detected mg/dL (<15); Beta VLDL Triglycerides Not Detected mg/dL (<15); Cholesterol, Total, CDC 233 mg/dL; Chylomicron Cholesterol Not Detected; Chylomicron Triglycerides Not Detected; HDL Cholesterol, CDC 60 mg/dL (>=50); LDL Cholesterol 146 mg/dL; LDL Triglycerides 36 mg/dL (<=50); Lp(a) Cholesterol <5 mg/dL (<5); LpX Not detected; Triglycerides, CDC 128 mg/dL; VLDL Cholesterol 27 mg/dL (<30); VLDL Triglycerides 69 mg/dL (<120)
== END 2024-12-04 01:02 | disposition home or self-care (01) ==
LOC: LOS 01:01
PROVIDERS: PCP Nurse Practitioner Family; Visit Provider Nurse Practitioner Family
DX: Z13.220 Encounter for screening for lipoid disorders (principal)
CPT/HCPCS: 36415; 80053; 80061; 82172; 82664

== ENCOUNTER 2024-12-30 02:37 | Outpatient (CLI) | payer BC, SELFPAY ==
--- NOTE | 2024-12-30 06:30 | DI.MAMMO_ITS ---
Exam(s) MAMMO SCREENING EXAM: MAMMO SCREENING CLINICAL HISTORY: screening,z12.39 TECHNIQUE: Bilateral full field digital CC and MLO mammographic images were obtained with 3D tomosyn thesis and utilizing computer aided detection (CAD). COMPARISON: Available for comparison. FINDINGS: Masses/Architectural Distortion: No suspicious masses or areas of architectural distortion are presen t. There is a stable nodule in the outer left breast on the craniocaudad view. There has been inter ebony decrease in size of the nodule in the outer upper quadrant of the right breast. Microcalcifications: No suspicious pleomorphic-type are seen. Skin Thickening/Nipple Retraction: None. IMPRESSION: 1. No significant interval change with no specific features of malignancy noted. 2. Unless there is more urgent need, screening mammography is recommended, as per [employer] guidelines. BI-RADS Category 2 - Benign Findings Breast Density - Category C - Heterogeneously dense Breast density category C or D implies that the patient has dense breast tissue. Dense breast tissue is very common and is not abnormal but dense breast tissue can make it harder to find cancer on a ma mmogram. Also, dense breast tissue may increase their breast cancer risk. This information about the result of the mammogram report was provided to the patient to raise their awareness. Use this report when you speak with the patient about their risks for breast cancer, which includes their family hist ory. At that time, you may recommend for more screening tests (Ultrasound or MRI) as they might be us eful based on their risk. A negative radiographic report should not delay biopsy if a dominant or clinically suspicious mass is present. Up to ten percent of cancers are not identified on mammography. A negative report may reinforce clinical impression. Adenosis and dense breasts may obscure an underlying neoplasm. False positive reports average 6 to 10%. Patient will receive a letter notifying them of these results.
== END 2024-12-30 02:57 ==
LOC: DI 02:37
PROVIDERS: PCP Nurse Practitioner Family; Visit Provider Nurse Practitioner Family
DX: Z12.31 Encounter for screening mammogram for malignant neoplasm of breast (principal); R92.333 Mammographic heterogeneous density, bilateral breasts; D24.2 Benign neoplasm of left breast
CPT/HCPCS: 77063; 77067